=== PATIENT | male | born 2000 | race Hispanic/Latino ===

== ENCOUNTER 2025-04-19 18:48 | Emergency (ER) | payer OTHER ==
[~2025-04-19] VITALS: Ht 177.8 cm; Wt 93.3 kg
[2025-04-19] MEDS: ACETAMINOPHEN 500 MG TAB PO ONE (19:08)
[2025-04-19 20:35] LABS: BASO # 0.0 10^3/uL (0.0-0.2); BASO % 0.4 % (0.0-1.0); EOS # 0.0 10^3/uL (0.0-0.5); EOS % 0.6 % (0.0-3.0); LYMPH # 0.6 10^3/uL (1.5-5.0); LYMPH % 8.7 % (24.0-44.0); MONO # 0.8 10^3/uL (0.0-0.8); MONO % 11.1 % (2.0-8.0); NEUTROPHILS # 5.6 10^3/uL (1.5-8.5); NEUTROPHILS % 78.6 % (36.0-66.0); PLATELET COUNT, AUTOMATED 153 10^3/uL (150-450)
[2025-04-19 21:22] LABS: ALT/SGPT 35 U/L (7.0-40); AST/SGOT 41 U/L (<34); CALCIUM LEVEL 8.6 MG/DL (8.5-10.1); CARBON DIOXIDE LEVEL 28 MMOL/L (20-31); CHLORIDE LEVEL 101 MMOL/L (98-107); CREATININE FOR GFR 0.94 MG/DL (0.70-1.30); GLOMERULAR FILTRATION RATE > 90.0 (>60); POTASSIUM SERUM 4.6 MMOL/L (3.5-5.1); SODIUM LEVEL 139 MMOL/L (136-145)
[2025-04-19 23:11] VITALS: BP 111/53; TEMP 98; O2SAT 97
== END 2025-04-19 23:29 | disposition home or self-care (01) ==
LOC: M ED 18:48
DX: R50.9 Fever, unspecified (principal); B34.8 Other viral infections of unspecified site